=== PATIENT | male | born 1990 | race Caucasian/White ===

== ENCOUNTER 2016-11-30 09:53 | Emergency (ER) | payer OTHER, BC ==
[2016-11-30] MEDS ORDERED: NORCO 5/3251 TABLET PO (12:56)
== END 2016-11-30 14:00 | disposition home or self-care (01) ==
LOC: TRA 09:53
DX: S00.81XA Abrasion of other part of head, initial encounter (principal); S40.211A Abrasion of right shoulder, initial encounter; S60.811A Abrasion of right wrist, initial encounter; S50.312A Abrasion of left elbow, initial encounter; V13.4XXA Pedal cycle driver injured in collision with car, pick-up truck or van in traffic accident, initial encounter; Y93.55 Activity, bike riding; Y92.410 Unspecified street and highway as the place of occurrence of the external cause; S80.212A Abrasion, left knee, initial encounter; S80.211A Abrasion, right knee, initial encounter
CPT/HCPCS: 70450; 71010; 72125; 80048; 81003; 82150; 83690; 85025; 86900; 86901; 99281; 99285; G0480